=== PATIENT | female | born 1995 | race Caucasian/White ===

== ENCOUNTER 2021-03-03 19:23 | Emergency (ER) | payer BC, OTHER ==
--- NOTE | 2021-03-03 19:44 | EDM.PDOC ---
ED HPI GENERAL MEDICAL PROBLEM - General Chief Complaint: Headache Stated Complaint: headache Time Seen by Provider: 03/03/21 19:35 Source of Information: Reports: Patient History Limitations: Reports: No Limitations - History of Present Illness INITIAL COMMENTS - FREE TEXT/NARRATIVE: Patient comes emergency department today with complaints of a migraine headache. Starting about noon today she has severe pain behind her left eye and her left temporal region. This is very consistent with the history of her migraines that she has about once a month. Typically it is on the right side of her mandaeism although today it is on her left side. This is not the worst headache she is ever had. She has been seen multiple times for her migraines in the past. She has been on prophylactic Topamax Depakote and attempted Imitrex in the past without improvement. She has a very typical presentation of her migraine today of severe pounding on the left temporal region. Photophobia phonophobia nausea without vomiting. She also has some wavy lines and blurriness to her vision when her headache comes on. She has no paresthesias of her upper or lower extremities. No change in the functionality of her upper or lower extremities. She does have a referral in for an MRI but she is new to the area and she needs to establish primary care. He did try some Tylenol without improvement. Left Headache Pain Score (Numeric/FACES): 8 - Related Data Allergies Allergy/AdvReac Type Severity Reaction Status Date / Time amoxicillin Allergy Cannot Verified 03/03/21 19:35 Remember Home Meds: Home Meds Promethazine [Phenergan] 25 mg PO Q6H PRN #12 tab 03/03/21 [Rx] Past Medical History - Past Health History Medical/Surgical History: Denies Medical/Surgical History - Infectious Disease History Infectious Disease History: Reports: None Social & Family History - Tobacco Use Tobacco Use Status *Q: Never Tobacco User - Recreational Drug Use Recreational Drug Use: No ED ROS GENERAL - Review of Systems Review Of Systems: Comprehensive ROS is negative, except as noted in HPI. - Physical Exam Exam: See Below Exam Limited By: No Limitations General Appearance: Alert, WD/WN, No Apparent Distress Eye Exam: Bilateral Eye: EOMI, PERRL Ears: Normal External Exam, Normal Canal, Normal TMs Nose: Normal Inspection Throat/Mouth: Normal Inspection Head Exam: Atraumatic, Normocephalic, Other (There is no cords on either mandaeism.) Neck: Normal Inspection, Supple, Non-Tender Respiratory/Chest: No Respiratory Distress, Lungs Clear, No Accessory Muscle Use Cardiovascular: Normal Peripheral Pulses, Regular Rate, Rhythm GI/Abdominal: Normal Bowel Sounds, Soft Neuro Exam (Abbreviated): Alert, Oriented, CN II-XII Intact, Normal Cognition, Normal Reflexes, No Motor/Sensory Deficits Back Exam: Normal Inspection, Full Range of Motion Extremities: Normal Inspection, Normal Range of Motion, Non-Tender, No Pedal Edema, Normal Capillary Refill Psychiatric: Normal Affect, Normal Mood Skin Exam: Warm, Dry, Intact, Normal Color, No Rash Course - Vital Signs Last Recorded V/S: Last Vital Signs Temp 98.2 F 03/03/21 19:25 Pulse 71 03/03/21 19:25 Resp 16 03/03/21 19:25 BP 132/96 H 03/03/21 19:25 Pulse Ox 99 03/03/21 19:25 - Orders/Labs/Meds Orders: Active Orders 24 hr Category Date Time Status Lactated Ringers [Ringers, Lactated] 1,000 ml Med 03/03/21 19:45 Active IV ONETIME Sodium Chloride 0.9% [Saline Flush] Med 03/03/21 19:45 Active 10 ml FLUSH ASDIRECTED PRN Peripheral IV Insertion Adult [OM.PC] Stat Oth 03/03/21 19:45 Ordered Medication Orders Lactated Ringer's (Ringers, Lactated) 1,000 mls @ 999 mls/hr IV ONETIME ONE Stop: 03/03/21 20:45 Last Admin: 03/03/21 20:00 Dose: 999 mls/hr Documented by: ROSEY Sodium Chloride (Sodium Chloride 0.9% 10 Ml Syringe) 10 ml FLUSH ASDIRECTED PRN PRN Reason: Keep Vein Open Meds: Medications Generic Name Dose Route Start Last Admin Trade Name Freq PRN Reason Stop Dose Admin Lactated Ringer's 1,000 mls @ 999 mls/hr 03/03/21 19:45 03/03/21 20:00 Ringers, Lactated IV 03/03/21 20:45 999 mls/hr ONETIME ONE Administration Sodium Chloride 10 ml 03/03/21 19:45 Sodium Chloride 0.9% 10 Ml Syringe FLUSH ASDIRECTED PRN Keep Vein Open Discontinued Medications Generic Name Dose Route Start Last Admin Trade Name Bird PRN Reason Stop Dose Admin Diphenhydramine HCl 25 mg 03/03/21 19:45 03/03/21 20:00 Diphenhydramine 50 Mg/Ml Sdv IVPUSH 03/03/21 19:46 25 mg ONETIME ONE Administration Ketorolac Tromethamine 30 mg 03/03/21 19:45 03/03/21 20:00 Ketorolac 30 Mg/Ml Sdv IVPUSH 03/03/21 19:46 30 mg ONETIME ONE Administration Metoclopramide HCl 10 mg 03/03/21 19:45 03/03/21 20:00 Metoclopramide 10 Mg/2 Ml Sdv IVPUSH 03/03/21 19:46 10 mg ONETIME ONE Administration - Re-Assessments/Exams Free Text/Narrative Re-Assessment/Exam: 03/03/21 19:57 IV LR 1 L wide open. 25 mg of Benadryl IV push. Ketorolac 30 mg IV push. Reglan 10 mg IV push. 03/03/21 20:49 Patient had complete resolution of her headache after the above therapy. She feels back to baseline. I discussed other abortive therapy such as promethazine to attempt for her about once a month abortive therapy for migraines. We will try this at this time. Also important for her to establish primary care for the referral of her MRI. Discharge instructions as below are explained to the patient she was comfortable with this plan and her questions were answered. Departure - Departure Time of Disposition: 20:34 Disposition: Home, Self-Care 01 Clinical Impression: Migraine - Discharge Information Instructions: Recurrent Migraine Headache, [id number], Migraine Headache, [id number] Referrals: PCP,None [Primary Care Provider] - Forms: ED Department Discharge Additional Instructions: Home tonight rest as much as possible. Make sure and drink plenty of fluids. For reoccurrence of migraine or abortive therapy try Promethazine 25mg 1 tablet every 6hrs as needed for headache nausea vomiting. RX sent to [facility]. Establish care with a PCP. Return to the ED if new or worsening symptoms. Sepsis Event Note (ED) - Evaluation Sepsis Screening Result: No Definite Risk - Focused Exam Vital Signs: Vital Signs Temp Pulse Resp BP Pulse Ox 03/03/21 19:25 98.2 F 71 16 132/96 H 99 - My Orders Last 24 Hours: My Active Orders 03/03/21 19:45 Lactated Ringers [Ringers, Lactated] 1,000 ml IV ONETIME Sodium Chloride 0.9% [Saline Flush] 10 ml FLUSH ASDIRECTED PRN Peripheral IV Insertion Adult [OM.PC] Stat - Assessment/Plan Last 24 Hours: My Active Orders 03/03/21 19:45 Lactated Ringers [Ringers, Lactated] 1,000 ml IV ONETIME Sodium Chloride 0.9% [Saline Flush] 10 ml FLUSH ASDIRECTED PRN Peripheral IV Insertion Adult [OM.PC] Stat
[2021-03-03] MEDS ORDERED: Lactated Ringers 1,000 ML IV ONE (19:45)
[2021-03-03] MEDS ORDERED: Ketorolac 30 MG/ML SDV IVPUSH ONE (19:45)
[2021-03-03] MEDS ORDERED: Sodium Chloride 0.9% 10 ML Syringe FLUSH PRN (19:45)
[2021-03-03] MEDS ORDERED: diphenhydrAMINE 50 MG/ML SDV IVPUSH ONE (19:45)
[2021-03-03] MEDS ORDERED: Metoclopramide 10 MG/2 ML SDV IVPUSH ONE (19:45)
== END 2021-03-03 21:00 | disposition home or self-care (01) ==
LOC: VM.ED 19:23
DX: G43.909 Migraine, unspecified, not intractable, without status migrainosus (principal); Z88.0 Allergy status to penicillin
CPT/HCPCS: 96374; 96375; 99282; 99283-25; J1200; J1885; J2765; J7120